=== PATIENT | male | born 1990 | race Hispanic/Latino ===

== ENCOUNTER 2020-09-22 13:41 | Day surgery (SDC) | payer BC ==
[2020-09-22] VITALS (14 sets, daily range): BP systolic 109–132; BP diastolic 68–91
[~2020-09-22] VITALS: Ht 165.1 cm; Wt 99.8 kg
[2020-09-22] MEDS ORDERED: PROPOFOL 10 MG/ML 20ML VIAL IV ONE ×2 (14:06→15:14)
[2020-09-22] MEDS ORDERED: LIDOCAINE HCL-MPF 2% 5ML VIAL ONE (14:07)
[2020-09-22] MEDS ORDERED: MIDAZOLAM HCL 1 MG/ML 2ML VIAL ONE ×2 (14:38→14:46)
[2020-09-22] MEDS ORDERED: FLUT15.812 NS (16:09)
[2020-09-22] MEDS ORDERED: CARV25TA PO (16:09)
[2020-09-22] MEDS ORDERED: PANT40TA54 PO (16:10)
== END 2020-09-22 16:30 | disposition home or self-care (01) ==
LOC: ENDO 13:41
PROVIDERS: ATTEND Internal Medicine Gastroenterology
DX: K92.1 Melena (principal); R19.7 Diarrhea, unspecified; K44.9 Diaphragmatic hernia without obstruction or gangrene; K21.00 Gastro-esophageal reflux disease with esophagitis, without bleeding; K29.80 Duodenitis without bleeding; K29.00 Acute gastritis without bleeding; K64.0 First degree hemorrhoids; R63.4 Abnormal weight loss; E66.9 Obesity, unspecified; K76.0 Fatty (change of) liver, not elsewhere classified; Z79.899 Other long term (current) drug therapy
CPT/HCPCS: 43239; 45380; A4215 ×2; A4221; A4222; A4223; A4606; A4620; A4657; A4663; J2250 ×2; J2704 ×2; J3490

== ENCOUNTER 2022-10-03 00:12 | Emergency (ER) | payer BC, OTHER ==
[~2022-10-03] VITALS: Ht 165.1 cm; Wt 110.2 kg
[~2022-10-03 00:12] MED LIST: CARV25TA PO; FLUT15.812 NS; PANT40TA54 PO
[2022-10-03 00:50] LABS: BASOPHILS % (AUTO) 0.4 % (0.0-5.0); EOSINOPHILS % (AUTO) 2.6 % (0.0-8.0); HEMATOCRIT 47.1 % (42-54); LYMPHOCYTES % (AUTO) 29.7 % (21.0-51.0); MEAN CORPUSCULAR HEMOGLOBIN 29.7 pg (27.0-33.0); MEAN CORPUSCULAR HGB CONC 33.5 g/dL (32.0-36.0); MEAN CORPUSCULAR VOLUME 88.5 fL (79-99); MONOCYTES % (AUTO) 9.5 % (3.0-13.0); NEUTROPHILS % (AUTO) 57.3 % (40.0-77.0); PLATELET COUNT (AUTO) 223 K/uL (130-400); RED BLOOD CELL COUNT(AUTO) 5.32 MIL/uL (4.50-6.20); RED CELL DISTRIBUTION WIDTH 12.5 % (11.0-15.5); WHITE BLOOD COUNT (AUTO) 8.5 K/uL (4.8-10.8)
[2022-10-03 00:59] LABS: POTASSIUM 3.8 mmol/L (3.5-5.1)
[2022-10-03] MEDS ORDERED: HYDRALAZINE 20MG/ML VIAL IV ONE (01:00)
[2022-10-03 01:04] LABS: ALBUMIN 3.6 g/dL (3.5-5.0); TOTAL PROTEIN, SERUM 7.5 g/dL (6.0-8.3)
[2022-10-03] MEDS ORDERED: LORAZEPAM 2 MG/ML 1 ML VIAL IVP ONE (01:30)
[2022-10-03 02:58] VITALS: BP 134/70
== END 2022-10-03 03:09 | disposition home or self-care (01) ==
LOC: EDH 00:12
DX: F41.9 Anxiety disorder, unspecified (principal); I10 Essential (primary) hypertension; F17.200 Nicotine dependence, unspecified, uncomplicated; Z79.899 Other long term (current) drug therapy; Z98.890 Other specified postprocedural states
CPT/HCPCS: 99285; 96374; 71045; 96375; 84484; 80053; 85025; 36415; 93005; J0360; J2060

== ENCOUNTER 2023-07-25 17:38 | Emergency (ER) | payer OTHER ==
[~2023-07-25] VITALS: Ht 165.1 cm; Wt 111.1 kg
[2023-07-25 17:43] VITALS: BP_DIAS 81
[2023-07-25 17:46] VITALS: BP_SYST 81; PULSE 82; RESP 16; O2SAT 98
[2023-07-25 19:45] LABS: BASOPHILS # (AUTO) 0.03 K/uL (0.00-0.20); BASOPHILS % (AUTO) 0.3 % (0.0-5.0); EOSINOPHILS % (AUTO) 2.2 % (0.0-8.0); HEMATOCRIT 44.4 % (42-54); IMMATURE GRANULOCYTE ABSOLUTE 0.04 K/uL (0-1); LYMPHOCYTES % (AUTO) 32.9 % (21.0-51.0); MEAN CORPUSCULAR HEMOGLOBIN 28.4 pg (27.0-33.0); MEAN CORPUSCULAR HGB CONC 32.7 g/dL (32.0-36.0); MEAN CORPUSCULAR VOLUME 87.1 fL (79-99); MONOCYTES # (AUTO) 0.9 K/uL (0.1-1.0); NEUTROPHILS # (AUTO) 4.9 K/uL (1.8-7.7); NEUTROPHILS % (AUTO) 54.2 % (40.0-77.0); PLATELET COUNT (AUTO) 251 K/uL (130-400); RED CELL DISTRIBUTION WIDTH 12.9 % (11.0-15.5); WHITE BLOOD COUNT (AUTO) 9.1 K/uL (4.8-10.8)
[2023-07-25 19:59] LABS: CREATININE 0.9 mg/dL (0.5-1.5); POTASSIUM 4.1 mmol/L (3.5-5.1)
[2023-07-25 20:04] LABS: ALBUMIN 3.6 g/dL (3.5-5.0); BILIRUBIN,TOTAL 0.4 mg/dL (0.2-1.0)
[2023-07-25] MEDS ORDERED: NAPR-1180 PO (20:25)
== END 2023-07-25 21:27 | disposition home or self-care (01) ==
LOC: EDH 17:38
DX: R07.89 Other chest pain (principal); M25.511 Pain in right shoulder; I10 Essential (primary) hypertension; F17.200 Nicotine dependence, unspecified, uncomplicated; E66.01 Morbid (severe) obesity due to excess calories; Z68.41 Body mass index [BMI] 40.0-44.9, adult; Z79.899 Other long term (current) drug therapy; Z98.890 Other specified postprocedural states
CPT/HCPCS: 36415; 80053; 84484; 85025; 93005